=== PATIENT | male | born 1940 | race Caucasian/White ===

== ENCOUNTER 2018-08-01 23:30 | Emergency (ER) | payer MEDICARE, OTHER ==
[~2018-08-01] VITALS: Ht 162.6 cm; Wt 93.0 kg
[~2018-08-01 23:30] MED LIST: ASPIR 8181 MG PO; CHLORTHALIDONE25 MG PO; IBUPROFEN 800800 M1 PO; KRILL OIL500 MG PO; LISINOPRIL20 MG PO; LOVASTATIN 20 M20 MG PO; METFORMIN HCL500 MG PO; MULTI-VITAMIN1 EAC5 PO; NEURONTIN 300300 M1 PO; NORCO 10-325 T1 EACH PO; NORVASC10 MG PO; OMEGA-31000 MG PO; OXYBUTYNIN 5 MG5 M2 PO; PRILOSEC40 MG PO; PROSCAR 5MG TABL5 MG PO
[2018-08-01] MEDS ORDERED: REGLAN 10 MG TA10 MG PO (23:48)
[2018-08-02] MEDS ORDERED: KEFLEX500 M1 PO (00:44)
[2018-08-02 00:59] VITALS: BP 138/64
== END 2018-08-02 01:02 | disposition home or self-care (01) ==
LOC: M.ERS 23:30
DX: S01.412A Laceration without foreign body of left cheek and temporomandibular area, initial encounter (principal); W54.0XXA Bitten by dog, initial encounter; Y93.89 Activity, other specified; Y92.89 Other specified places as the place of occurrence of the external cause; Y99.8 Other external cause status

== ENCOUNTER → 2019-11-13 | Outpatient (CLI) | payer MEDICARE ==
[~2019-11-13] MED LIST changes: +KEFLEX500 M1 PO; +REGLAN 10 MG TA10 MG PO
[2019-11-13 09:18] LABS: ABSOLUTE EOSINOPHILS 0.2 thou/uL (0.0-0.7); ABSOLUTE LYMPHOCYTES 1.4 thou/uL (0.8-5.3); ABSOLUTE MONOCYTES 1.1 thou/uL (0.0-1.2); ABSOLUTE NEUTROPHILS 5.4 thou/uL (1.6-8.1); BASOPHILS 0.4 %; EOSINOPHILS 2.2 %; HEMATOCRIT 41.9 % (42.0-52.0); HEMOGLOBIN 14.3 gm/dL (14.0-18.0); LYMPHOCYTES 17.4 %; MCH 29.5 pg (26.0-34.0); MCHC 34.1 g/dL (28.0-37.0); MCV 86.5 fL (80.0-100.0); MONOCYTES 13.2 %; MPV 8.5 fl. (7.2-11.1); NUCLEATED RBCS 0 /100WBC; PLATELET COUNT* 249 thou/uL (150-400); POLYS 66.8 %; RBC 4.85 mil/uL (4.50-6.00); RDW-CV 14.6 % (10.5-14.5)
[2019-11-13 10:10] LABS: ALBUMIN 4.4 g/dL (3.4-5.0); TOTAL BILIRUBIN 0.4 mg/dL (<0.1-1.0)
[2019-11-13 11:44] LABS: ESR (SEDRATE) 12 mm/hr (0-20)
== END ==
LOC: M.LAB 08:50
PROVIDERS: ATTEND Psychiatry & Neurology Neuromuscular Medicine
DX: R27.0 Ataxia, unspecified (principal); H02.409 Unspecified ptosis of unspecified eyelid; R53.83 Other fatigue; R45.1 Restlessness and agitation; Z86.73 Personal history of transient ischemic attack (TIA), and cerebral infarction without residual deficits

== ENCOUNTER → 2019-11-26 | Outpatient (CLI) | payer MEDICARE, OTHER | LOC: M.LAB 10-21 08:43 → M.MRI 11:45 | PROVIDERS: ATTEND Psychiatry & Neurology Neuromuscular Medicine | DX: M50.21 Other cervical disc displacement, high cervical region (principal); R90.82 White matter disease, unspecified; M48.03 Spinal stenosis, cervicothoracic region; R53.83 Other fatigue; R27.0 Ataxia, unspecified; H02.409 Unspecified ptosis of unspecified eyelid; Z86.73 Personal history of transient ischemic attack (TIA), and cerebral infarction without residual deficits ==

== ENCOUNTER → 2020-01-23 | Outpatient (CLI) | payer MEDICARE, OTHER | LOC: M.NUC 01-21 09:05 | PROVIDERS: ATTEND Family Medicine | DX: I87.2 Venous insufficiency (chronic) (peripheral) (principal); M19.90 Unspecified osteoarthritis, unspecified site; R74.8 Abnormal levels of other serum enzymes ==